=== PATIENT | male | born 1990 | race Caucasian/White ===

== ENCOUNTER 2017-10-21 11:42 | Emergency (ER) | payer BC, MEDICAID ==
--- NOTE | 2017-10-21 12:09 | EDM.PDOC ---
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 pain. Pt had a partial SBO in April 2017. No trauma. No N/V last BM was today and yesterday, nl amount and consistency, no blood in stool, no F/C BP 160/101 pulse 90, temp 36.4. Onset Date: 10/20/17 Onset Time: 06:00 Duration: Day(s):, Intermittent Location: Reports: Abdomen Quality: Reports: Dull, Pressure Severity: Moderate Improves with: Reports: Rest Worsens with: Reports: Movement Context: Reports: Other (abd. pain H/O SBO) Abdominal Pain Score (Numeric/FACES): 10 - Related Data Allergies Allergy/AdvReac Type Severity Reaction Status Date / Time No Known Allergies Allergy Verified 10/21/17 11:54 Home Meds: Home Meds Lacosamide [Vimpat] 200 mg PO BID 10/21/17 [History] Metoprolol Succinate 100 mg PO DAILY 10/21/17 [History] lamoTRIgine [Lamotrigine] 25 mg PO DAILY 10/21/17 [History] lamoTRIgine [Lamotrigine] 50 mg PO BEDTIME 10/21/17 [History] Social & Family History - Tobacco Use Smoking Status *Q: Never Smoker - Caffeine Use Caffeine Use: Reports: None - Recreational Drug Use Recreational Drug Use: No ED ROS GENERAL - Review of Systems Review Of Systems: See Below Constitutional: Reports: No Symptoms HEENT: Reports: No Symptoms Respiratory: Reports: No Symptoms Cardiovascular: Reports: No Symptoms Endocrine: Reports: No Symptoms GI/Abdominal: Reports: Abdominal Pain : Reports: No Symptoms Musculoskeletal: Reports: No Symptoms Skin: Reports: No Symptoms Neurological: Reports: No Symptoms Psychiatric: Reports: No Symptoms Hematologic/Lymphatic: Reports: No Symptoms Immunologic: Reports: No Symptoms ED EXAM, GI/ABD - Physical Exam Exam: See Below Exam Limited By: No Limitations General Appearance: Alert, WD/WN, Mild Distress Eyes: Bilateral: Normal Appearance Ears: Normal External Exam Nose: Normal Inspection Throat/Mouth: Normal Inspection, Normal Lips Head: Atraumatic, Normocephalic Neck: Normal Inspection, Supple, Non-Tender, Full Range of Motion Respiratory/Chest: No Respiratory Distress, Lungs Clear, Normal Breath Sounds Cardiovascular: Normal Peripheral Pulses, Regular Rate, Rhythm, No Edema GI/Abdominal Exam: Tender (mild, periumbilical) (Male) Exam: No Hernia, Normal Inspection Rectal (Males) Exam: Deferred Back Exam: Normal Inspection, Full Range of Motion Extremities: Normal Range of Motion, Non-Tender, No Pedal Edema, Other (s/p left leg amputation as a child) Neurological: Alert, Oriented, CN II-XII Intact, Normal Cognition Psychiatric: Normal Affect, Normal Mood Skin Exam: Warm, Dry, Intact, Normal Color, No Rash Lymphatic: No Adenopathy Course - Vital Signs Text/Narrative:: 27 y.o.w.m wheelchair 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 pain. Pt had a partial SBO in April 2017. No trauma. No N/V last BM was today and yesterday, nl amount and consistency, no blood in stool, no F/C BP 160/101 pulse 90, temp 36.4. PE: WN WD W M NAD pain 03/29, refused pain meds, no nausea Imaging: Last CT abd. 04/2017. Abd. flat/upright 10/21/2017: Non specific BGP Labs: CBC and BMP were WNL, however, HGB was 16.6 ALT was > 100, UA was neg. Impression: Abd. pain, cause not determined Tx: Pt refused meds Plan: Pt wants to observe the situation and come back if worse. Pt was d/c with instructions. Last Recorded V/S: Last Vital Signs Temp 36.3 C 10/21/17 11:55 Pulse 87 10/21/17 14:50 Resp 18 10/21/17 11:55 BP 139/84 10/21/17 14:50 Pulse Ox 96 10/21/17 11:55 - Orders/Labs/Meds Orders: Active Orders 24 hr Category Date Time Status Abdomen 2V AP Flat Upright [CR] Stat Exams 10/21/17 12:04 Taken Labs: Laboratory Tests 10/21/17 10/21/17 10/21/17 Range/Units 12:09 12:40 12:40 WBC 11.5 (4.5-12.0) X10-3/uL RBC 5.96 H (4.30-5.75) x10(6)uL Hgb 16.8 H (11.5-15.5) g/dL Hct 48.6 (30.0-51.3) % MCV 81.4 (80-96) fL MCH 28.2 (27.7-33.6) pg MCHC 34.6 (32.2-35.4) g/dL RDW 12.9 (11.5-15.5) % Plt Count 293 (125-369) X10(3)uL MPV 8.7 (7.4-10.4) fL Neut % (Auto) 68.4 (46-82) % Lymph % (Auto) 16.9 (13-37) % [place] % (Auto) 10.4 (4-12) % Eos % (Auto) 3 (1.0-5.0) % Baso % (Auto) 1 (0-2) % Neut # (Auto) 7.9 (1.6-8.3) # Lymph # (Auto) 1.9 (0.6-5.0) # [place] # (Auto) 1.2 (0.0-1.3) # Eos # (Auto) 0.4 (0.0-0.8) # Baso # (Auto) 0.1 (0.0-0.2) # Sodium 137 (135-145) mmol/L Potassium 4.3 (3.5-5.3) mmol/L Chloride 102 (100-110) mmol/L Carbon Dioxide 30 (21-32) mmol/L BUN 12 (7-18) mg/dL Creatinine 0.9 (0.70-1.30) mg/dL Est Cr Clr Drug Dosing 128.43 mL/min Estimated GFR (MDRD) > 60 (>60) BUN/Creatinine Ratio 13.3 (9-20) Glucose 95 (80-116) mg/dL Calcium 9.6 (8.6-10.2) mg/dL Total Bilirubin 0.4 (0.1-1.3) mg/dL Direct Bilirubin 0.07 L (0.10-0.20) mg/dL AST 34 H (5-25) IU/L ALT 103 H (12-36) U/L Alkaline Phosphatase 73 (56-112) IU/L Total Protein 8.1 H (6.0-8.0) g/dL Albumin 4.2 (3.5-5.2) g/dL Amylase 58 (25-115) U/L Urine Color Yellow (YELLOW) Urine Appearance Clear (CLEAR) Urine pH 6.0 (5.0-6.5) Ur Specific [place] 1.010 (1.010-1.025) Urine Protein Negative (NEGATIVE) mg/dL Urine Glucose (UA) Normal (NEGATIVE) mg/dL Urine Ketones Negative (NEGATIVE) mg/dL Urine Occult Blood Negative (NEGATIVE) Urine Nitrite Negative (NEGATIVE) Urine Bilirubin Negative (NEGATIVE) Urine Urobilinogen Normal (NEGATIVE) mg/dL Ur Leukocyte Esterase Negative (NEGATIVE) Urine WBC 0-5 (0) Ur Squamous Epith Cells Few H (NS,R,O) Urine Bacteria Few H (NS) Departure - Departure Time of Disposition: 14:43 Disposition: Home, Self-Care 01 Condition: Good Clinical Impression: Generalized abdominal discomfort - Discharge Information Referrals: PCP,Not In Area [Primary Care Provider] - Forms: ED Department Discharge Additional Instructions: Please increase water intake, oatmeal daily, please f/u, please come back if your symptoms get worse acutely - My Orders Last 24 Hours: My Active Orders 10/21/17 12:04 Abdomen 2V AP Flat Upright [CR] Stat - Assessment/Plan Last 24 Hours: My Active Orders 10/21/17 12:04 Abdomen 2V AP Flat Upright [CR] Stat
== END 2017-10-21 14:50 | disposition home or self-care (01) ==
LOC: FB.ED 11:42
DX: R10.815 Periumbilic abdominal tenderness (principal)
CPT/HCPCS: 36415; 74020; 80048; 80076; 81001; 82150; 85025; 99284

== ENCOUNTER 2024-03-15 17:18 | Emergency (ER) | payer MEDICAID ==
[2024-03-15 18:04] LABS: EOSINOPHILS ABSOLUTE AUTO 0.4 x10-3/uL (0.0-0.6); NEUTROPHILS ABSOLUTE AUTO 6.7 x10-3/uL (1.7-6.9)
[2024-03-15 18:06] LABS: BASOPHILS ABSOLUTE AUTO 0.1 x10-3/uL (0.0-0.3); BASOPHILS PERCENT AUTO 0.6 % (0.3-3.8); BLOOD UREA NITROGEN,BUN 14 mg/dL (7-18); BUN/CREATININE RATIO 15.6 (9-20); CALCIUM 9.3 mg/dL (8.6-10.2); CARBON DIOXIDE,CO2 27 mmol/L (21-32); CHLORIDE,CL 102 mmol/L (100-110); CREATININE 0.9 mg/dL (0.70-1.30); EOSINOPHILS PERCENT AUTO 3.9 % (0.1-6.8); EST CRCL DRUG DOSING (CG) 121.67 mL/min; ESTIMATED GFR 116 mL/min (>60); GLUCOSE RANDOM 101 mg/dL (80-116); HEMATOCRIT 46.9 % (38.3-50.1); HEMOGLOBIN 15.8 g/dL (12.9-17.7); LYMPHOCYTES ABSOLUTE AUTO 2.3 x10-3/uL (0.5-4.5); LYMPHOCYTES PERCENT AUTO 21.9 % (15.8-45.3); MEAN CORPUSCULAR HEMOGLOBIN 27.6 pg (27.0-33.3); MEAN CORPUSCULAR HGB CONC 33.7 g/dL (28.7-35.3); MEAN CORPUSCULAR VOLUME 81.8 fL (80.8-98.7); MEAN PLATELET VOLUME 8.1 fL (6.7-11.0); MONOCYTES PERCENT AUTO 9.6 % (5.5-15.2); PLATELET COUNT,PLT 264 x10(3)uL (117-477); POTASSIUM,K 3.9 mmol/L (3.5-5.3); RED BLOOD CELL COUNT 5.74 x10(6)uL (3.90-5.90); RED CELL DISTRIBUTION WIDTH 14.2 % (12.4-15.0); SODIUM,NA 139 mmol/L (135-145); WHITE BLOOD CELL COUNT,WBC 10.5 x10-3/uL (3.2-10.1)
[2024-03-15 18:12] LABS: A/G RATIO 1.2; ALANINE AMINOTRANSFERASE,ALT 66 U/L (12-36); ALBUMIN 4.3 g/dL (3.5-5.2); ALKALINE PHOSPHATASE 53 IU/L (56-112); ASPARTATE AMNIOTRANSFERASE,AST 25 IU/L (5-25); BILIRUBIN TOTAL 0.7 mg/dL (0.1-1.3); MAGNESIUM 1.8 mg/dL (1.8-2.5); PROTEIN TOTAL,TP 7.9 g/dL (6.0-8.0)
[2024-03-15 18:15] LABS: C-REACTIVE PROTEIN 0.5 mg/dL (<0.50); TROPONIN I 5.1 pg/mL (4.0-60.3)
[2024-03-15 18:51] LABS: BILIRUBIN,URINE NEGATIVE (NEGATIVE); GLUCOSE,URINE NORMAL (NORMAL); KETONES,URINE NEGATIVE (NEGATIVE); LEUKOCYTE ESTERASE,URINE NEGATIVE (NEGATIVE); NITRITE,URINE NEGATIVE (NEGATIVE); OCCULT BLOOD,URINE NEGATIVE (NEGATIVE); PROTEIN,URINE NEGATIVE (NEGATIVE); UROBILINOGEN,URINE NORMAL (NEGATIVE)
[2024-03-15 18:52] LABS: APPEARANCE,URINE CLEAR (CLEAR); BACTERIA,URINE FEW (NS); COLOR,URINE YELLOW (YELLOW); RBC,URINE 0-5 (0-5); SQUAMOUS EPITHELIAL CELLS,UR FEW (NS,R,O); WBC,URINE 0-5 (0-5)
[2024-03-15] MEDS: Diphtheria,Pertussis(Acell),Tetanus Vaccine 0.5 ML Syringe IM ONE (19:15)
== END 2024-03-15 19:46 | disposition home or self-care (01) ==
LOC: FB.ED 17:18
DX: S01.81XA Laceration without foreign body of other part of head, initial encounter (principal); G40.909 Epilepsy, unspecified, not intractable, without status epilepticus; I10 Essential (primary) hypertension; Z23 Encounter for immunization; Z79.899 Other long term (current) drug therapy; X58.XXXA Exposure to other specified factors, initial encounter; Y93.89 Activity, other specified
CPT/HCPCS: 36415; 70450; 80053; 81001; 83605; 83735; 84484; 85025; 86140; 90471; 90715; 93005; 99284-25